=== PATIENT | male | born 1985 | race Hispanic/Latino ===

== ENCOUNTER 2021-01-01 12:06 | Emergency (ER) | payer OTHER ==
[2021-01-01 12:45] LABS: Absolute Lymphocytes (CBC) 2.9 K/uL (0.7-4.9); Basophils % 0.4 % (0-1.3); Hematocrit 44.2 % (39.6-49.0); MPV 7.4 fL (7.6-11.3); RBC Red Blood Cell Count 4.96 M/uL (4.33-5.43)
[2021-01-01 12:49] LABS: Protime INR 1.02
[2021-01-01 13:14] LABS: ALT/SGPT 35 U/L (12-78); AST/SGOT 18 U/L (15-37); Albumin 4.3 g/dL (3.4-5.0); Alkaline Phosphatase 72 U/L (45-117); BUN Blood Urea Nitrogen 15 mg/dL (7-18); Bicarbonate 27 mmol/L (21-32); Bilirubin Direct 0.2 mg/dL (0-0.2); Bilirubin Total 0.6 mg/dL (0.2-1.0); Glucose Level 90 mg/dL (74-106); Magnesium 2.2 mg/dL (1.8-2.4); NT PRO-BNP 24 pg/mL (<125); Potassium 3.9 mmol/L (3.5-5.1); Protein, Total 7.7 g/dL (6.4-8.2); Sodium Level 140 mmol/L (136-145); Troponin (Emerg Dept Use Only) < 0.02 ng/mL (0.0-0.045)
[2021-01-01 13:32] LABS: Blood Morphology Comment NOT SEEN (NOT SEEN); Platelet Estimate ADEQ
--- NOTE | 2021-01-01 14:31 | EDPHYS ---
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 12:35 The patient presents with dizziness, feeling faint, lightheadedness. rn 12:35 Onset: The symptoms/episode began/occurred 2 month(s) ago. Modifying factors: The rn symptoms are alleviated by nothing, the symptoms are aggravated by nothing. Associated signs and symptoms: Pertinent negatives: abdominal pain, agitation, ataxia, blurred vision, chest pain, combativeness, confusion, diaphoresis, focal weakness, head injury, palpitations, seizure, shortness of breath, syncope. Severity of symptoms: At their worst the symptoms were moderate in the emergency department the symptoms have improved. The patient has not experienced similar symptoms in the past. The patient has been recently seen by a physician:. Patient reports a few months of intermittent dizziness, a few times a week, made an appointment to see cardiology, seen today, ECG showed possible ST elevation per Dr. Cox, but patient without chest pain, so Sent him here for further evaluation. Patient states currently not dizzy. No chest pain or shortness of breath. No focal neurological deficits. No family history of early cardiac problems.. Historical: - Allergies: 12:24 No Known Allergies; kg - Home Meds: 12:24 None [Active]; kg - PMHx: 12:24 None; kg - PSHx: 12:24 Appendectomy; kg - Immunization history:: Adult Immunizations up to date, Client reports receiving the 2nd dose of the Covid vaccine, Date received: July 2020 [place] Client reports receiving the 1st dose of the Covid vaccine, July 2020 [place]. - Social history:: Smoking status: Patient denies any tobacco usage or history of. Patient uses alcohol, occasionally. - Family history:: not pertinent. - Hospitalizations: : No recent hospitalization is reported. ROS: 12:35 Constitutional: Negative for fever, chills, and weight loss, Eyes: Negative for injury, rn pain, redness, and discharge, ENT: Negative for injury, pain, and discharge, Neck: Negative for injury, pain, and swelling, Cardiovascular: Negative for chest pain, palpitations, and edema, Respiratory: Negative for shortness of breath, cough, wheezing, and pleuritic chest pain, Abdomen/GI: Negative for abdominal pain, nausea, vomiting, diarrhea, and constipation, Back: Negative for injury and pain, : Negative for injury, bleeding, discharge, and swelling, MS/Extremity: Negative for injury and deformity, Skin: Negative for injury, rash, and discoloration, Neuro: Negative for headache, weakness, numbness, tingling, and seizure. 12:35 All other systems are negative. Exam: 12:34 ECG was reviewed by the Attending Physician. rn 12:35 Constitutional: This is a well developed, well nourished patient who is awake, alert, rn and in no acute distress. Head/Face: Normocephalic, atraumatic. Eyes: Pupils equal round and reactive to light, extra-ocular motions intact. Lids and lashes normal. Conjunctiva and sclera are non-icteric and not injected. Cornea within normal limits. Periorbital areas with no swelling, redness, or edema. ENT: No stridor Neck: Trachea midline, no masses palpated Cardiovascular: Regular rate and rhythm. No pulse deficits. Respiratory: Speaking full sentences, unlabored. No increased work of breathing, no retractions or nasal flaring. Abdomen/GI: Soft, non-tender, no masses Skin: Warm, dry MS/ Extremity: Pulses equal, no cyanosis. Neuro: Awake and alert, GCS 15, oriented to person, place, time, and situation. Cranial nerves II-XII grossly intact. Motor strength 5/5 in all extremities. Sensory grossly intact. Cerebellar exam normal. Normal gait. Vital Signs: 12:17 BP 115 / 75; Pulse 64; Resp 17; Temp 98.2(TE); Weight 70.31 kg (R); Height 5 ft. 9 in. kg (175.26 cm) (R); Pain 0/10; 14:50 BP 108 / 75; Pulse 60; Resp 16; Pulse Ox 96% on R/A; ll1 12:17 Body Mass Index 22.89 (70.31 kg, 175.26 cm) kg MDM: 13:38 Patient medically screened. rn 14:24 Differential diagnosis: cardiac arrhythmia, generalized weakness, hyperventilation, rn hypovolemia, idiopathic dizziness, near-syncope, vertigo. Data reviewed: vital signs, nurses notes, lab test result(s), EKG, radiologic studies. 14:27 Data interpreted: pvc monitor: rate is 64 beats/min, rhythm is normal sinus rhythm, rn regular, with no ectopy, Interpretation: normal rate, normal rhythm. Counseling: I had a detailed discussion with the patient and/or guardian regarding: the historical points, exam findings, and any diagnostic results supporting the discharge/admit diagnosis, lab results, radiology results, the need for outpatient follow up, to return to the emergency department if symptoms worsen or persist or if there are any questions or concerns that arise at home. Response to treatment: the patient's symptoms have resolved after treatment, the patient's condition has returned to base line, the patient is now symptom free, and as a result, I will discharge patient. Special discussion: I discussed with the patient/guardian in detail that at this point there is no indication for admission to the hospital. It is understood, however, that if the symptoms persist or worsen the patient needs to return immediately for re-evaluation. Based on the history and exam findings, there is no indication for further emergent testing or inpatient evaluation. I discussed with the patient/guardian the need to see the billboard poster for further evaluation of the symptoms. ED course: Patient with negative work-up here. Radiology with negative CT per verbal report. Troponin negative. Consulted with Dr. Cox regarding results and work-up, states okay to DC home with follow-up as planned outpatient.. 01/01 12:12 Order name: Basic Metabolic Panel; Complete Time: 13:17 kb 01/01 12:12 Order name: CBC with Diff; Complete Time: 13:39 kb 01/01 12:12 Order name: LFT's; Complete Time: 13:17 kb 01/01 12:12 Order name: Magnesium; Complete Time: 13:17 kb 01/01 12:12 Order name: NT PRO-BNP; Complete Time: 13:17 kb 01/01 12:12 Order name: PT-INR; Complete Time: 13:03 kb 01/01 12:12 Order name: Troponin (emerg Dept Use Only); Complete Time: 13:17 kb 01/01 12:12 Order name: XRAY Chest (1 view) kb 01/01 12:12 Order name: EKG; Complete Time: 12:13 kb 01/01 12:12 Order name: Cardiac monitoring; Complete Time: 12:30 kb 01/01 12:12 Order name: EKG - Nurse/Tech; Complete Time: 12:30 kb 01/01 12:12 Order name: D-Dimer; Complete Time: 13:03 kb 01/01 12:12 Order name: CT Head Brain wo Cont kb 01/01 12:46 Order name: Manual Differential; Complete Time: 13:39 EDMS 01/01 12:12 Order name: IV Saline Lock; Complete Time: 12:30 kb 01/01 12:12 Order name: Labs collected and sent; Complete Time: 12:30 kb 01/01 12:12 Order name: O2 Per Protocol; Complete Time: 12:30 kb 01/01 12:12 Order name: O2 Sat Monitoring; Complete Time: 12:30 kb EC:34 Rate is 64 beats/min. Rhythm is regular. QRS [place] is Normal. [place] interval is normal. QRS rn interval is normal. QT interval is normal. No Q waves. T waves are Normal. No ST changes noted. Clinical impression: Normal ECG. Interpreted by me. Reviewed by me. 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
--- NOTE | 2021-01-01 14:31 | ER ---
Nurse's Notes [facility] Name: Fer Yeager Age: 35 yrs Sex: Male : 1985 Arrival Date: 01/01/2021 Time: 12:11 Bed 14 Private MD: Diagnosis: Dizziness and giddiness Presentation: 01/01 12:17 Chief complaint: Patient states: Sent over by Delivery Professional for abnormal EKG. Pt stated, kg "I've been having dizzy spells for the last few months so I made an appointment to see the retail service lead merchandiser." Pt denies Chest pain, pt states when he has a dizzy spell it makes him feel like hes going to pass out. Coronavirus screen: Client denies travel out of the [place] in the last 14 days. At this time, unable to obtain information related to travel outside the [place] Ebola Screen: Patient negative for fever greater than or equal to 101.5 degrees Fahrenheit, and additional compatible Ebola Virus Disease symptoms Patient denies exposure to infectious person. Patient denies travel to an Ebola-affected area in the 21 days before illness onset. Initial Sepsis Screen: Does the patient meet any 2 criteria? No. Patient's initial sepsis screen is negative. Does the patient have a suspected source of infection? No. Patient's initial sepsis screen is negative. Risk Assessment: Do you want to hurt yourself or someone else? Patient reports no desire to harm self or others. Onset of symptoms is unknown. 12:17 Method Of Arrival: Ambulatory kg 12:17 Acuity: BAILEY 3 kg Triage Assessment: 12:24 General: Appears in no apparent distress. Behavior is calm, cooperative, appropriate kg for age, quiet. Pain: Denies pain. Historical: - Allergies: 12:24 No Known Allergies; kg - Home Meds: 12:24 None [Active]; kg - PMHx: 12:24 None; kg - PSHx: 12:24 Appendectomy; kg - Immunization history:: Adult Immunizations up to date, Client reports receiving the 2nd dose of the Covid vaccine, Date received: July 2020 [place] Client reports receiving the 1st dose of the Covid vaccine, July 2020 [place]. - Social history:: Smoking status: Patient denies any tobacco usage or history of. Patient uses alcohol, occasionally. - Family history:: not pertinent. - Hospitalizations: : No recent hospitalization is reported. Screenin:29 Abuse screen: Denies threats or abuse. Nutritional screening: No deficits noted. kg Tuberculosis screening: No symptoms or risk factors identified. Fall Risk None identified. Assessment: 13:40 General: Appears in no apparent distress. Behavior is calm, cooperative, appropriate ll1 for age. Pain: Denies pain. 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 Full function Gait is steady, Speech is normal, Facial symmetry appears normal, Reports dizziness, near syncope feeling. Cardiovascular: No deficits noted. Respiratory: No deficits noted. GI: No deficits noted. 14:40 Reassessment: No changes from previously documented assessment. Patient and/or family ll1 updated on plan of care and expected duration. Pain level reassessed. Patient is alert, oriented x 3, equal unlabored respirations, skin warm/dry/pink. Vital Signs: 12:17 BP 115 / 75; Pulse 64; Resp 17; Temp 98.2(TE); Weight 70.31 kg (R); Height 5 ft. 9 in. kg (175.26 cm) (R); Pain 0/10; 14:50 BP 108 / 75; Pulse 60; Resp 16; Pulse Ox 96% on R/A; ll1 12:17 Body Mass Index 22.89 (70.31 kg, 175.26 cm) kg ED Course: 12:11 Patient arrived in ED. ds1 12:22 Triage completed. kg 12:24 Arm band placed on left wrist. kg 12:27 Polo Bonilla MD is Attending Physician. rn 12:29 Patient has correct armband on for positive identification. kg 12:29 Inserted saline lock: 20 gauge in left antecubital area, using aseptic technique. kg 12:30 Basic Metabolic Panel Sent. kg 12:30 LFT's Sent. kg 12:30 Magnesium Sent. kg 12:30 CBC with Diff Sent. kg 12:30 NT PRO-BNP Sent. kg 12:30 PT-INR Sent. kg 12:30 Troponin (emerg Dept Use Only) Sent. kg 12:30 D-Dimer Sent. kg 12:42 CT Head Brain wo Cont In Process Unspecified. EDMS 13:39 Jack, Lynsay, RN is Primary Nurse. ll1 14:30 XRAY Chest (1 view) In Process Unspecified. EDMS 14:30 Christiano Cox MD is Referral Physician. rn 14:53 No provider procedures requiring assistance completed. IV discontinued, intact, ll1 bleeding controlled, No redness/swelling at site. Pressure dressing applied. Administered Medications: No medications were administered Outcome: 14:30 Discharge ordered by MD. rn 14:53 Discharged to home ambulatory. ll1 14:53 Condition: stable 14:53 Discharge instructions given to patient, Instructed on discharge instructions, follow up and referral plans. Demonstrated understanding of instructions, follow-up care. 14:53 Patient left the ED. ll1 Signatures: Dispatcher [employer] EDCA Mona Gutierrez ds1 Polo Bonilla MD MD rn Lewis, Lynsay, RN RN ll1 Radha Phan RN RN kg
[2021-01-01 14:59] VITALS: TEMP 98.2
[2021-01-01 15:03] VITALS: BP 108/75; O2SAT 96
--- NOTE | 2021-01-02 07:39 | EKG ---
Test Date: 2021-01-01 Test Time: 12:18:43 School Age Lead Teacher: JULIANA MEASUREMENT RESULTS: Intervals: Rate: 64 ME: 162 QRSD: 100 QT: 390 QTc: 402 [place]: P: 70 ME: 162 QRS: 64 T: 64 INTERPRETIVE STATEMENTS: Normal sinus rhythm Normal ECG No previous ECG available for comparison Electronically Signed On 01-02-21 07:36:32 CDT by Rogelio Wong
--- NOTE | 2021-01-02 08:24 | RAD REPORT ---
EXAM DESCRIPTION: CT - Head Brain Wo Cont - 01/01/2021 12:42 pm CLINICAL HISTORY: DIZZINESS Prolonged imaging system malfunction precluded earlier reporting. Findings were telephoned to the ref erring clinician cellphone at the time of the study. COMPARISON: No comparisons TECHNIQUE: Axial 5 mm thick images of the head were obtained without IV contrast. All CT scans are performed using dose optimization technique as appropriate and may include automated exposure control or mA/KV adjustment according to patient size. FINDINGS: No intracranial hemorrhage, mass, edema or shift of mid-line structures. No acute infarcti on changes seen. No abnormal extra-axial fluid collections. Ventricles are normal. Mastoid air cells and visualized portions of the paranasal sinuses are clear. No acute bony findings. IMPRESSION: Negative non-contrast CT head examination.
--- NOTE | 2021-01-02 09:37 | RAD REPORT ---
EXAM DESCRIPTION: RAD - Chest Single View - 01/01/2021 2:30 pm CLINICAL HISTORY: CHEST PAIN Prolonged technical malfunctions delayed the final written report. COMPARISON: None TECHNIQUE: AP portable chest image was obtained 01/01/2021 2:30 pm . FINDINGS: Lungs are clear. Heart and vasculature are normal. No measurable pleural effusion and no p neumothorax. No acute bony abnormality seen. No acute aortic findings suspected. IMPRESSION: No acute cardiopulmonary process.
== END 2021-01-01 14:53 | disposition home or self-care (01) ==
LOC: ER 12:06
DX: R42 Dizziness and giddiness (principal)
CPT/HCPCS: 36415; 70450; 71045; 80048; 80076; 83735; 83880; 84484; 85025; 85379; 85610; 93005; 99283